=== PATIENT | male | born 1940 ===

== ENCOUNTER → 2017-07-10 | Outpatient (CLI) | payer OTHER ==
[~2017-07-10] MED LIST: AMIO200T7 PO; DOXA4TAB3 PO; LOSA25TA5 PO; METO-93 PO; SIMV20TA3 PO
[2017-07-10 11:52] LABS: ALANINE AMINOTRANSFERASE 38 U/L (12-78); ALBUMIN 3.5 g/dL (3.4-5.0); ANION GAP 6 mmol/L (5-15); CALCIUM 8.9 mg/dL (8.5-10.1); CHLORIDE 108 mmol/L (98-107)
[2017-07-10 11:54] LABS: ALKALINE PHOSPHATASE 53 U/L (45-117); BILIRUBIN,TOTAL 0.4 mg/dL (0.2-1.0); TOTAL PROTEIN 7.3 g/dL (6.4-8.2)
== END | disposition home or self-care (01) ==
LOC: STAR 10:14
PROVIDERS: ATTEND Surgery
DX: Z01.818 Encounter for other preprocedural examination (principal); R94.31 Abnormal electrocardiogram [ECG] [EKG]; K44.9 Diaphragmatic hernia without obstruction or gangrene
CPT/HCPCS: 36415; 80053; 93005

== ENCOUNTER 2017-07-14 08:05 | Inpatient (IN) | payer OTHER ==
[2017-07-10 11:02] VITALS: BP 151/92
[~2017-07-14] VITALS: Ht 175.3 cm; Wt 99.5 kg
[~2017-07-14 08:05] MED LIST changes: +BUPIVACAINE/PF 0.5% ONE; +EPINEPHRINE 1 MG/ML, 1ML ONE
[2017-07-14] MEDS ORDERED: LACTATED RINGERS 1,000 ML IV SCH (08:50)
[2017-07-14] MEDS ORDERED: LIDOCAINE-MPF 1%, 2ML INFIL ONE (09:00)
[2017-07-14] MEDS ORDERED: ASPIRIN PO (09:20)
[2017-07-14] MEDS ORDERED: OXYcodone IR 5MG TABLET PO ONE (10:00)
[2017-07-14] MEDS ORDERED: GABAPENTIN 300 MG CAPSULE PO ONE (10:00)
[2017-07-14] MEDS ORDERED: ACETAMINOPHEN 500 MG TABLET PO ONE (10:00)
[2017-07-14] MEDS ORDERED: FAMOTIDINE 20 MG/2 ML IVPush ONE (10:00)
[2017-07-14] MEDS ORDERED: GABAPENTIN 300 MG CAPSULE ONE (10:04)
[2017-07-14] MEDS ORDERED: FAMOTIDINE 20 MG/2 ML ONE (10:04)
[2017-07-14] MEDS ORDERED: MIDAZOLAM 1 MG/ML, 2ML ONE (10:05)
[2017-07-14] MEDS ORDERED: OXYcodone IR 5MG TABLET ONE (10:05)
[2017-07-14] MEDS ORDERED: FENTANYL PF 250 MCG/5ML ONE (10:05)
[2017-07-14] MEDS ORDERED: ACETAMINOPHEN 500 MG TABLET ONE (10:06)
[2017-07-14] MEDS ORDERED: LIDOCAINE-MPF 2% ,5ML ONE (10:24)
[2017-07-14] MEDS ORDERED: PHENYLEPHRINE 10 MG/ML ONE (10:24)
[2017-07-14] MEDS ORDERED: LIDOCAINE 4%, 4 ML SYR/CANN TP ONE (10:24)
[2017-07-14] MEDS ORDERED: FENTANYL PF 100 MCG/2ML IV PRN (11:00)
[2017-07-14] MEDS ORDERED: morphine SULFATE 10 MG/ML, 1ML IV PRN (11:00)
[2017-07-14] MEDS ORDERED: PROMETHAZINE 25 MG/ML, 1ML IV PRN (11:00)
[2017-07-14] MEDS ORDERED: METOCLOPRAMIDE 5 MG/ML, 2ML IV PRN (11:00)
[2017-07-14] MEDS ORDERED: ONDANSETRON 2MG/ML, 2ML IVPush PRN (11:00)
[2017-07-14] MEDS ORDERED: OXYcodone 5 MG/5 ML ORAL.SOL UDC PO PRN (11:00)
[2017-07-14] MEDS ORDERED: hydrALAzine 20 MG/ML, 1ML IV PRN (11:00)
[2017-07-14] MEDS ORDERED: LABETALOL 5MG/ML, 20ML IV PRN (11:00)
[2017-07-14] MEDS ORDERED: HYDROcodone/APAP 7.5-325MG/15ML UDC PO PRN (11:00)
[2017-07-14] MEDS ORDERED: BUPIVACAINE/PF-EPI 0.5% 1:200K IM ONE (11:14)
[2017-07-14] MEDS ORDERED: FENTANYL PF 100 MCG/2ML ONE (12:59)
[2017-07-14] MEDS ORDERED: PROPOFOL 10 MG/ML, 20ML ONE (13:05)
[2017-07-14] MEDS ORDERED: ROCURONIUM 10MG/ML,5ML ONE (13:05)
[2017-07-14] MEDS ORDERED: NEOSTIGMINE 1 MG/ML, 10ML ONE (13:05)
[2017-07-14] MEDS ORDERED: CEFAZOLIN 1,000 MG ONE (13:05)
[2017-07-14] MEDS ORDERED: GLYCOPYRROLATE 0.2MG/1ML, 5ML ONE (13:05)
[2017-07-14] MEDS ORDERED: DEXAMETHASONE 4 MG/ML, 1ML ONE (13:05)
[2017-07-14] MEDS ORDERED: SUCCINYLCHOLINE 20 MG/ML, 10ML ONE (13:05)
[2017-07-14] MEDS ORDERED: ONDANSETRON 2MG/ML, 2ML ONE (13:05)
[2017-07-14] MEDS ORDERED: MORPHINE SULFATE 4 MG/ML, 1ML ONE (14:41)
[2017-07-14] MEDS ORDERED: hydrALAzine 20 MG/ML, 1ML ONE (14:55)
[2017-07-14 16:12] VITALS: BP 133/81
[2017-07-14] MEDS ORDERED: MORPHINE SULFATE 4 MG/ML, 1ML IVPush PRN (16:30)
[2017-07-14] MEDS ORDERED: ONDANSETRON ODT 4 MG PO PRN (16:30)
[2017-07-14] MEDS ORDERED: ONDANSETRON 2MG/ML, 2ML IV PRN (16:30)
[2017-07-14] MEDS: METOPROLOL TARTRATE 50 MG TABLET PO SCH (17:48)
[2017-07-14 19:44] VITALS: BP 151/89
[2017-07-14] MEDS ORDERED: SIMVASTATIN 20 MG TABLET PO SCH (21:00)
[2017-07-14 23:30] VITALS: BP 134/84
[2017-07-15] MEDS: LACTATED RINGERS 1,000 ML IV SCH ×2 (00:58→07:00)
[2017-07-15 02:47] VITALS: BP 158/88
[2017-07-15 05:22] LABS: BASOPHILS % (AUTO) 0 % (0-1); EOSINOPHILS % (AUTO) 0 % (1-7); LYMPHOCYTES # (AUTO) 0.65 x10^3/uL (1-3.4); LYMPHOCYTES % (AUTO) 7 % (22-44); MD NO; MEAN CORPUSCULAR HEMOGLOBIN 31.3 pg (27.5-34.5); MEAN CORPUSCULAR HGB CONC 33.3 g/dL (33.2-36.2); MEAN CORPUSCULAR VOLUME 94.1 fL (81-97); MEAN PLATELET VOLUME 8.8 fL (7.4-10.4); MONOCYTES # (AUTO) 0.72 x10^3/uL (0.2-0.8); MONOCYTES % (AUTO) 8 % (2-9); NEUTROPHILS # (AUTO) 8.23 x10^3/uL (1.8-6.8); NEUTROPHILS % (AUTO) 86 % (42-75); PLATELET COUNT 160 x10^3/uL (130-400); RED BLOOD COUNT 4.76 x10^6/uL (4.38-5.82)
[2017-07-15 05:30] LABS: ANION GAP 8 mmol/L (5-15); CALCIUM 8.2 mg/dL (8.5-10.1); CHLORIDE 106 mmol/L (98-107); CREATININE 1.01 mg/dL (0.7-1.3)
[2017-07-15] MEDS: METOPROLOL TARTRATE 50 MG TABLET PO SCH (06:44)
[2017-07-15 07:14] VITALS: BP 115/75
[2017-07-15] MEDS ORDERED: AMIODARONE 200 MG TABLET PO SCH (09:00)
[2017-07-15] MEDS ORDERED: DOXAZOSIN 2MG TABLET PO SCH (09:00)
[2017-07-15] MEDS ORDERED: LOSARTAN 25MG TABLET PO SCH (09:00)
[2017-07-15 12:21] VITALS: BP 119/76
[2017-07-15] MEDS ORDERED: OXYC-302 PO (14:13)
== END 2017-07-15 14:45 | disposition home or self-care (01) | DRG 328 ==
LOC: OUT 08:05 → 4NOR 16:08 → OUT 17:00 → 4NOR 17:01 → DCLOUNGE 07-15 14:11
PROVIDERS: ADMIT Surgery; ATTEND Surgery
PROC: 0BQT4ZZ Repair Diaphragm, Percutaneous Endoscopic Approach (ICD-10-PCS; principal; 2017-07-14 10:15)
DX: K44.9 Diaphragmatic hernia without obstruction or gangrene (principal); K66.8 Other specified disorders of peritoneum; I10 Essential (primary) hypertension
CPT/HCPCS: 36415; 80048; 85025; J0171; J0690; J1100; J2250; J2270; J2405; J2704; J2710; J3010; J3490; J0330; J0360; J2370; J7120; S0028

== ENCOUNTER 2017-07-18 09:37 | Inpatient (IN) | payer OTHER ==
[~2017-07-18] VITALS: Ht 175.3 cm; Wt 97.5 kg
[~2017-07-18 09:37] MED LIST changes: +ASPIRIN PO; -BUPIVACAINE/PF 0.5% ONE; -EPINEPHRINE 1 MG/ML, 1ML ONE; +OXYC-302 PO
[2017-07-18] MEDS ORDERED: SODIUM CHLORIDE FLUSH 10ML SYR IVF ONE (10:30)
[2017-07-18 10:35] LABS: BASOPHILS # (AUTO) 0.02 x10^3/uL (0-0.1); BASOPHILS % (AUTO) 0 % (0-1); EOSINOPHILS # (AUTO) 0.14 x10^3/uL (0-0.4); EOSINOPHILS % (AUTO) 2 % (1-7); LYMPHOCYTES # (AUTO) 0.71 x10^3/uL (1-3.4); LYMPHOCYTES % (AUTO) 8 % (22-44); MD NO; MEAN CORPUSCULAR HEMOGLOBIN 31.2 pg (27.5-34.5); MEAN CORPUSCULAR VOLUME 94.5 fL (81-97); MEAN PLATELET VOLUME 8.2 fL (7.4-10.4); MONOCYTES # (AUTO) 0.87 x10^3/uL (0.2-0.8); MONOCYTES % (AUTO) 9 % (2-9); NEUTROPHILS # (AUTO) 7.73 x10^3/uL (1.8-6.8); NEUTROPHILS % (AUTO) 82 % (42-75); PLATELET COUNT 142 x10^3/uL (130-400); RED CELL DISTRIBUTION WIDTH 13.9 % (9.4-14.8)
[2017-07-18 10:45] LABS: ALANINE AMINOTRANSFERASE 244 U/L (12-78); ALBUMIN 2.9 g/dL (3.4-5.0); ANION GAP 7 mmol/L (5-15); CALCIUM 8.6 mg/dL (8.5-10.1); CHLORIDE 102 mmol/L (98-107)
[2017-07-18 10:49] LABS: ALKALINE PHOSPHATASE 44 U/L (45-117); BILIRUBIN,TOTAL 0.7 mg/dL (0.2-1.0); TOTAL PROTEIN 6.9 g/dL (6.4-8.2); TROPONIN I < 0.015 ng/mL (0.000-0.045)
[2017-07-18] MEDS ORDERED: OMNIPAQUE 350 MG/ML, 100ML BOTTLE ONE (13:20)
[2017-07-18] MEDS ORDERED: morphine SULFATE 10 MG/ML, 1ML IVPush ONE (13:30)
[2017-07-18] MEDS ORDERED: MORPHINE SULFATE 4 MG/ML, 1ML ONE (13:40)
[2017-07-18] MEDS ORDERED: PANT20TA3 PO (13:50)
[2017-07-18 14:14] LABS: MICROSCOPIC NOT IND
[2017-07-18 14:25] LABS: CULTURE INDICATED? NO
[2017-07-18] MEDS ORDERED: DOCUSATE 100 MG CAPSULE PO PRN (15:00)
[2017-07-18] MEDS ORDERED: POLYETHYLENE GLYCOL 17 GM PACKET PO PRN (15:00)
[2017-07-18] MEDS ORDERED: ONDANSETRON ODT 4 MG PO PRN (15:00)
[2017-07-18] MEDS ORDERED: BISACODYL 10 MG SUPP PR PRN (15:00)
[2017-07-18] MEDS ORDERED: ACETAMINOPHEN 325 MG TABLET PO PRN (15:00)
[2017-07-18] MEDS ORDERED: SODIUM CHLORIDE 0.9% 1,000 ML IV SCH (15:00)
[2017-07-18 15:21] LABS: INTERNATIONAL NORMALIZED RATIO 1.06 (0.93-1.1); PROTHROMBIN TIME 10.9 Seconds (9.6-11.5)
[2017-07-18] MEDS ORDERED: OMNIPAQUE 350 MG/ML, 150 ML BOTTLE ONE (15:41)
[2017-07-18 16:20] VITALS: BP 165/95
[2017-07-18] MEDS: NS + 20MEQ KCL 1,000 ML IV SCH (17:48)
[2017-07-18 18:31] VITALS: BP 176/96
[2017-07-18] MEDS: ENALAPRILAT 1.25 MG/ML, 2ML IVPush PRN (18:41)
[2017-07-18 19:54] VITALS: BP 165/99
[2017-07-18] MEDS: DOXAZOSIN 2MG TABLET PO SCH (20:49)
[2017-07-18] MEDS: METOPROLOL SUCCINATE 50 MG TAB.ER.24H PO SCH (20:49)
[2017-07-18] MEDS: SIMVASTATIN 20 MG TABLET PO SCH (20:49)
[2017-07-19] VITALS (7 sets, daily range): BP systolic 160–185; BP diastolic 91–99
[2017-07-19] MEDS: morphine SULFATE 10 MG/ML, 1ML IVPush PRN ×4 (02:15→23:12)
[2017-07-19] MEDS: SODIUM CHLORIDE NASAL SPRAY 45ML BOTTLE NAS PRN (03:10)
[2017-07-19 05:01] LABS: BASOPHILS # (AUTO) 0.02 x10^3/uL (0-0.1); BASOPHILS % (AUTO) 0 % (0-1); EOSINOPHILS # (AUTO) 0.13 x10^3/uL (0-0.4); EOSINOPHILS % (AUTO) 2 % (1-7); LYMPHOCYTES # (AUTO) 0.67 x10^3/uL (1-3.4); LYMPHOCYTES % (AUTO) 9 % (22-44); MD NO; MEAN CORPUSCULAR HEMOGLOBIN 31.4 pg (27.5-34.5); MEAN CORPUSCULAR HGB CONC 33.1 g/dL (33.2-36.2); MEAN CORPUSCULAR VOLUME 94.9 fL (81-97); MEAN PLATELET VOLUME 8.3 fL (7.4-10.4); MONOCYTES # (AUTO) 0.77 x10^3/uL (0.2-0.8); MONOCYTES % (AUTO) 10 % (2-9); NEUTROPHILS # (AUTO) 6.28 x10^3/uL (1.8-6.8); NEUTROPHILS % (AUTO) 80 % (42-75); PLATELET COUNT 161 x10^3/uL (130-400); RED CELL DISTRIBUTION WIDTH 14.1 % (9.4-14.8)
[2017-07-19 05:14] LABS: CHLORIDE 105 mmol/L (98-107)
[2017-07-19 05:29] LABS: ALANINE AMINOTRANSFERASE 173 U/L (12-78); ALBUMIN 2.5 g/dL (3.4-5.0); ALKALINE PHOSPHATASE 43 U/L (45-117); ANION GAP 7 mmol/L (5-15); BILIRUBIN,TOTAL 0.7 mg/dL (0.2-1.0); CREATININE 0.81 mg/dL (0.7-1.3)
[2017-07-19] MEDS: NS + 20MEQ KCL 1,000 ML IV SCH ×2 (07:44→22:25)
[2017-07-19] MEDS: DOXAZOSIN 2MG TABLET PO SCH ×2 (09:00→21:39)
[2017-07-19] MEDS: METOPROLOL SUCCINATE 50 MG TAB.ER.24H PO SCH ×2 (09:00→21:39)
[2017-07-19] MEDS: AMIODARONE 200 MG TABLET PO SCH (09:00)
[2017-07-19] MEDS: LOSARTAN 50MG TABLET PO SCH (09:00)
[2017-07-19] MEDS ORDERED: LIDOCAINE-MPF 1%, 5ML ONE (09:00)
[2017-07-19] MEDS: ENALAPRILAT 1.25 MG/ML, 2ML IVPush PRN (16:08)
[2017-07-19] MEDS: SIMVASTATIN 20 MG TABLET PO SCH (21:39)
[2017-07-19] MEDS ORDERED: MORPHINE SULFATE 4 MG/ML, 1ML ONE (23:09)
[2017-07-20 04:00] VITALS: BP 163/95
[2017-07-20 05:46] LABS: BASOPHILS # (AUTO) 0.01 x10^3/uL (0-0.1); BASOPHILS % (AUTO) 0 % (0-1); EOSINOPHILS % (AUTO) 1 % (1-7); LYMPHOCYTES % (AUTO) 10 % (22-44); MD NO; MEAN CORPUSCULAR HEMOGLOBIN 31.5 pg (27.5-34.5); MEAN CORPUSCULAR HGB CONC 33.6 g/dL (33.2-36.2); MEAN CORPUSCULAR VOLUME 93.8 fL (81-97); MEAN PLATELET VOLUME 7.7 fL (7.4-10.4); MONOCYTES # (AUTO) 0.86 x10^3/uL (0.2-0.8); MONOCYTES % (AUTO) 11 % (2-9); NEUTROPHILS # (AUTO) 5.99 x10^3/uL (1.8-6.8); NEUTROPHILS % (AUTO) 77 % (42-75); PLATELET COUNT 139 x10^3/uL (130-400); RED BLOOD COUNT 4.62 x10^6/uL (4.38-5.82)
[2017-07-20 05:52] LABS: ALBUMIN 2.7 g/dL (3.4-5.0); ANION GAP 8 mmol/L (5-15); CALCIUM 8.2 mg/dL (8.5-10.1); CHLORIDE 107 mmol/L (98-107)
[2017-07-20 05:56] LABS: ALANINE AMINOTRANSFERASE 132 U/L (12-78); ALKALINE PHOSPHATASE 48 U/L (45-117); CREATININE 0.68 mg/dL (0.7-1.3); TOTAL PROTEIN 6.4 g/dL (6.4-8.2)
[2017-07-20] MEDS ORDERED: BISACODYL 5 MG EC TABLET PO PRN (06:30)
[2017-07-20 08:12] VITALS: BP 159/95
[2017-07-20] MEDS: DOXAZOSIN 2MG TABLET PO SCH ×2 (09:27→20:31)
[2017-07-20] MEDS: AMIODARONE 200 MG TABLET PO SCH (09:27)
[2017-07-20] MEDS: NS + 20MEQ KCL 1,000 ML IV SCH ×2 (09:27→20:32)
[2017-07-20] MEDS: METOPROLOL SUCCINATE 50 MG TAB.ER.24H PO SCH ×2 (09:28→20:32)
[2017-07-20] MEDS: OXYcodone/APAP 5/325MG TABLET PO PRN ×2 (09:28→20:32)
[2017-07-20] MEDS: LOSARTAN 50MG TABLET PO SCH (09:28)
[2017-07-20 13:15] VITALS: BP_SYST 129; BP_DIAS 70; BP_DIAS 86
[2017-07-20 20:04] VITALS: BP 175/109
[2017-07-20] MEDS: SIMVASTATIN 20 MG TABLET PO SCH (20:32)
[2017-07-20] MEDS: SODIUM CHLORIDE NASAL SPRAY 45ML BOTTLE NAS PRN (20:33)
[2017-07-21 03:01] VITALS: BP 157/99
[2017-07-21 04:31] LABS: BASOPHILS # (AUTO) 0.02 x10^3/uL (0-0.1); BASOPHILS % (AUTO) 0 % (0-1); EOSINOPHILS # (AUTO) 0.16 x10^3/uL (0-0.4); EOSINOPHILS % (AUTO) 2 % (1-7); LYMPHOCYTES # (AUTO) 0.73 x10^3/uL (1-3.4); LYMPHOCYTES % (AUTO) 8 % (22-44); MD NO; MEAN CORPUSCULAR HEMOGLOBIN 31.3 pg (27.5-34.5); MEAN CORPUSCULAR HGB CONC 33.4 g/dL (33.2-36.2); MEAN CORPUSCULAR VOLUME 93.8 fL (81-97); MEAN PLATELET VOLUME 7.2 fL (7.4-10.4); MONOCYTES # (AUTO) 1.06 x10^3/uL (0.2-0.8); MONOCYTES % (AUTO) 12 % (2-9); NEUTROPHILS # (AUTO) 7.09 x10^3/uL (1.8-6.8); NEUTROPHILS % (AUTO) 78 % (42-75); PLATELET COUNT 143 x10^3/uL (130-400); RED BLOOD COUNT 4.43 x10^6/uL (4.38-5.82); RED CELL DISTRIBUTION WIDTH 13.9 % (9.4-14.8)
[2017-07-21 04:41] LABS: ALANINE AMINOTRANSFERASE 103 U/L (12-78); ALBUMIN 2.6 g/dL (3.4-5.0); ANION GAP 6 mmol/L (5-15); CALCIUM 8.3 mg/dL (8.5-10.1); CHLORIDE 105 mmol/L (98-107); CREATININE 0.81 mg/dL (0.7-1.3)
[2017-07-21 04:44] LABS: ALKALINE PHOSPHATASE 49 U/L (45-117); BILIRUBIN,TOTAL 1.3 mg/dL (0.2-1.0); TOTAL PROTEIN 6.3 g/dL (6.4-8.2)
[2017-07-21 06:55] VITALS: BP 145/86
[2017-07-21] MEDS: DOXAZOSIN 2MG TABLET PO SCH ×2 (09:36→21:58)
[2017-07-21] MEDS: METOPROLOL SUCCINATE 50 MG TAB.ER.24H PO SCH ×2 (09:36→21:57)
[2017-07-21] MEDS: LOSARTAN 50MG TABLET PO SCH (09:37)
[2017-07-21] MEDS: AMIODARONE 200 MG TABLET PO SCH (09:37)
[2017-07-21 13:24] VITALS: BP 117/79
[2017-07-21 20:23] VITALS: BP 158/95
[2017-07-21] MEDS: OXYcodone/APAP 5/325MG TABLET PO PRN (21:57)
[2017-07-21] MEDS: NS + 20MEQ KCL 1,000 ML IV SCH (21:57)
[2017-07-21] MEDS: SIMVASTATIN 20 MG TABLET PO SCH (21:58)
[2017-07-22 05:12] VITALS: BP 153/92
[2017-07-22 07:12] VITALS: BP 161/102
[2017-07-22] MEDS: AMIODARONE 200 MG TABLET PO SCH (08:08)
[2017-07-22] MEDS: LOSARTAN 50MG TABLET PO SCH (08:08)
[2017-07-22] MEDS: METOPROLOL SUCCINATE 50 MG TAB.ER.24H PO SCH (08:08)
[2017-07-22] MEDS: DOXAZOSIN 2MG TABLET PO SCH (08:08)
[2017-07-22] MEDS: NS + 20MEQ KCL 1,000 ML IV SCH (10:20)
[2017-07-22 15:21] VITALS: BP 154/97
== END 2017-07-22 16:45 | disposition home or self-care (01) | DRG 391 ==
LOC: ED 14:05 → EDIP 14:10 → ED 14:14 → 3NW 16:15
PROVIDERS: ADMIT Hospitalist; ATTEND Family Medicine
PROC: 0D9670Z Drainage of Stomach with Drainage Device, Via Natural or Artificial Opening (ICD-10-PCS; 2017-07-18)
PROC: 0W9B3ZZ Drainage of Left Pleural Cavity, Percutaneous Approach (ICD-10-PCS; principal; 2017-07-19)
DX: K44.9 Diaphragmatic hernia without obstruction or gangrene (principal); I50.31 Acute diastolic (congestive) heart failure; E44.0 Moderate protein-calorie malnutrition; J90 Pleural effusion, not elsewhere classified; J98.11 Atelectasis; I11.0 Hypertensive heart disease with heart failure; I77.810 Thoracic aortic ectasia; R73.9 Hyperglycemia, unspecified; R74.0 Nonspecific elevation of levels of transaminase and lactic acid dehydrogenase [LDH]; E78.5 Hyperlipidemia, unspecified; G47.33 Obstructive sleep apnea (adult) (pediatric); G89.18 Other acute postprocedural pain; I27.20 Pulmonary hypertension, unspecified; I25.10 Atherosclerotic heart disease of native coronary artery without angina pectoris; R09.02 Hypoxemia; K21.9 Gastro-esophageal reflux disease without esophagitis; I25.2 Old myocardial infarction; Z82.49 Family history of ischemic heart disease and other diseases of the circulatory system; Z87.891 Personal history of nicotine dependence; Z79.899 Other long term (current) drug therapy; Z79.82 Long term (current) use of aspirin; Z68.31 Body mass index [BMI] 31.0-31.9, adult
CPT/HCPCS: 36415; 71045; 71275; 74018; 74220; 80053; 81003; 83605; 83735; 83880; 84100; 84484; 85025; 85610; 87040; 93005; 93306; 99285; J3480; Q9967; J2270

== ENCOUNTER 2017-12-08 14:46 | Inpatient (IN) | payer OTHER ==
[~2017-12-08] VITALS: Ht 175.3 cm; Wt 73.0 kg
[~2017-12-08 14:46] MED LIST changes: -LOSA25TA5 PO; +LOSA25TA6 PO; +PANT20TA3 PO
[2017-12-08] MEDS ORDERED: PLEASE ENTER HEIGHT AND WEIGHT MC SCH (15:00)
[2017-12-08] MEDS ORDERED: SODIUM CHLORIDE FLUSH 10ML SYR IVF ONE (15:00)
[2017-12-08 15:34] LABS: ALBUMIN 2.1 g/dL (3.4-5.0); BASOPHILS # (AUTO) 0.03 x10^3/uL (0-0.1); BASOPHILS % (AUTO) 0 % (0-1); CHLORIDE 103 mmol/L (98-107); EOSINOPHILS # (AUTO) 0.02 x10^3/uL (0-0.4); EOSINOPHILS % (AUTO) 0 % (1-7); LYMPHOCYTES # (AUTO) 0.84 x10^3/uL (1-3.4); LYMPHOCYTES % (AUTO) 7 % (22-44); MD NO; MEAN CORPUSCULAR HEMOGLOBIN 31.5 pg (27.5-34.5); MEAN CORPUSCULAR HGB CONC 33.8 g/dL (33.2-36.2); MEAN CORPUSCULAR VOLUME 93.1 fL (81-97); MEAN PLATELET VOLUME 6.8 fL (7.4-10.4); MONOCYTES # (AUTO) 0.85 x10^3/uL (0.2-0.8); MONOCYTES % (AUTO) 7 % (2-9); NEUTROPHILS # (AUTO) 10.29 x10^3/uL (1.8-6.8); NEUTROPHILS % (AUTO) 86 % (42-75); PLATELET COUNT 279 x10^3/uL (130-400); RED BLOOD COUNT 3.18 x10^6/uL (4.38-5.82); RED CELL DISTRIBUTION WIDTH 14.8 % (9.4-14.8)
[2017-12-08 15:42] LABS: ANION GAP 5 mmol/L (5-15); CREATININE 0.62 mg/dL (0.7-1.3)
[2017-12-08 15:59] LABS: INTERNATIONAL NORMALIZED RATIO 1.12 (0.93-1.1); PROTHROMBIN TIME 11.5 Seconds (9.6-11.5)
[2017-12-08] MEDS ORDERED: OMNIPAQUE 350 MG/ML, 100ML BOTTLE ONE (16:14)
[2017-12-08] MEDS ORDERED: HEPARIN 5,000 UNITS/ML, 1ML IV ONE (17:00)
[2017-12-08] MEDS ORDERED: HEPARIN 5,000 UNITS/ML, 1ML ONE (17:24)
[2017-12-08] MEDS ORDERED: HEPARIN 25,000 UNITS/500ML PMX 500 ML ONE (17:24)
[2017-12-08] MEDS ORDERED: ACETAMINOPHEN 325 MG TABLET PO PRN (17:30)
[2017-12-08] MEDS ORDERED: hydrALAzine 20 MG/ML, 1ML IVPush PRN (17:30)
[2017-12-08] MEDS: HEPARIN 25,000 UNITS/500ML PMX 500 ML IV PRN (17:36)
[2017-12-08 18:00] VITALS: BP 156/96
[2017-12-08 20:39] VITALS: BP 156/108
[2017-12-08] MEDS: DOXAZOSIN 2MG TABLET PO SCH (21:05)
[2017-12-08] MEDS: SIMVASTATIN 20 MG TABLET PO SCH (21:17)
[2017-12-08 22:43] VITALS: BP 116/72
[2017-12-09] MEDS: HEPARIN 5,000 UNITS/ML, 1ML IV PRN ×2 (01:01→09:12)
[2017-12-09 02:33] VITALS: BP 127/79
[2017-12-09 07:29] VITALS: BP 131/75
[2017-12-09 08:40] LABS: BASOPHILS # (AUTO) 0.01 x10^3/uL (0-0.1); BASOPHILS % (AUTO) 0 % (0-1); EOSINOPHILS # (AUTO) 0.11 x10^3/uL (0-0.4); EOSINOPHILS % (AUTO) 1 % (1-7); LYMPHOCYTES # (AUTO) 0.74 x10^3/uL (1-3.4); LYMPHOCYTES % (AUTO) 9 % (22-44); MD NO; MEAN CORPUSCULAR HEMOGLOBIN 30.4 pg (27.5-34.5); MEAN CORPUSCULAR HGB CONC 32.7 g/dL (33.2-36.2); MEAN CORPUSCULAR VOLUME 93.1 fL (81-97); MEAN PLATELET VOLUME 6.5 fL (7.4-10.4); MONOCYTES # (AUTO) 0.57 x10^3/uL (0.2-0.8); MONOCYTES % (AUTO) 7 % (2-9); NEUTROPHILS # (AUTO) 6.84 x10^3/uL (1.8-6.8); NEUTROPHILS % (AUTO) 83 % (42-75); PLATELET COUNT 246 x10^3/uL (130-400); RED BLOOD COUNT 2.95 x10^6/uL (4.38-5.82); RED CELL DISTRIBUTION WIDTH 15.4 % (9.4-14.8)
[2017-12-09 08:51] LABS: ALANINE AMINOTRANSFERASE 16 U/L (12-78); ALBUMIN 1.8 g/dL (3.4-5.0); ANION GAP 5 mmol/L (5-15); CALCIUM 7.7 mg/dL (8.5-10.1); CHLORIDE 104 mmol/L (98-107); CHOLESTEROL, TOTAL 100 mg/dL (140-239); CREATININE 0.54 mg/dL (0.7-1.3)
[2017-12-09 08:59] LABS: ALKALINE PHOSPHATASE 53 U/L (45-117); BILIRUBIN,TOTAL 0.5 mg/dL (0.2-1.0); CHOL/HDL RATIO 2.4; HDL CHOL % 42 % (26-37); HDL CHOLESTEROL (DIRECT) 42 mg/dL (40-60); LDL CHOLESTEROL,CALCULATED 47 mg/dL (54-169); LDL/HDL RATIO 1.1 (0.5-3.0); TOTAL PROTEIN 5.3 g/dL (6.4-8.2); TRIGLYCERIDES 54 mg/dL (50-200); VLDL CHOLESTEROL 11 mg/dL (0-25)
[2017-12-09] MEDS: AMIODARONE 200 MG TABLET PO SCH (09:32)
[2017-12-09] MEDS: DOXAZOSIN 2MG TABLET PO SCH ×2 (09:34→20:51)
[2017-12-09] MEDS: PANTOPRAZOLE 20MG TABLET PO SCH (09:34)
[2017-12-09 13:17] VITALS: BP 122/77
[2017-12-09] MEDS ORDERED: ONDANSETRON ODT 4 MG PO PRN (16:00)
[2017-12-09] MEDS ORDERED: LIDOCAINE-MPF 2%, 2ML ONE (16:27)
[2017-12-09] MEDS ORDERED: HEPARIN 5,000 UNITS/ML, 1ML IVPush ONE (20:30)
[2017-12-09] MEDS: SIMVASTATIN 20 MG TABLET PO SCH (20:51)
[2017-12-09 20:55] VITALS: BP 132/84
[2017-12-10 02:22] VITALS: BP 135/105
[2017-12-10] MEDS: HEPARIN 25,000 UNITS/500ML PMX 500 ML IV PRN (02:25)
[2017-12-10 04:17] LABS: BASOPHILS # (AUTO) 0.03 x10^3/uL (0-0.1); BASOPHILS % (AUTO) 0 % (0-1); EOSINOPHILS # (AUTO) 0.08 x10^3/uL (0-0.4); EOSINOPHILS % (AUTO) 1 % (1-7); LYMPHOCYTES # (AUTO) 0.81 x10^3/uL (1-3.4); LYMPHOCYTES % (AUTO) 10 % (22-44); MD NO; MEAN CORPUSCULAR HEMOGLOBIN 31.1 pg (27.5-34.5); MEAN CORPUSCULAR HGB CONC 33.5 g/dL (33.2-36.2); MEAN CORPUSCULAR VOLUME 92.8 fL (81-97); MEAN PLATELET VOLUME 6.7 fL (7.4-10.4); MONOCYTES # (AUTO) 0.59 x10^3/uL (0.2-0.8); MONOCYTES % (AUTO) 7 % (2-9); NEUTROPHILS # (AUTO) 6.77 x10^3/uL (1.8-6.8); NEUTROPHILS % (AUTO) 82 % (42-75); PLATELET COUNT 240 x10^3/uL (130-400); RED BLOOD COUNT 2.86 x10^6/uL (4.38-5.82); RED CELL DISTRIBUTION WIDTH 15.1 % (9.4-14.8)
[2017-12-10 04:28] LABS: ALANINE AMINOTRANSFERASE 15 U/L (12-78); ALBUMIN 1.7 g/dL (3.4-5.0); ANION GAP 5 mmol/L (5-15); CALCIUM 7.4 mg/dL (8.5-10.1); CHLORIDE 104 mmol/L (98-107); CREATININE 0.56 mg/dL (0.7-1.3)
[2017-12-10 04:30] LABS: ALKALINE PHOSPHATASE 52 U/L (45-117); BILIRUBIN,TOTAL 0.5 mg/dL (0.2-1.0)
[2017-12-10] MEDS: HEPARIN 5,000 UNITS/ML, 1ML IV PRN ×2 (04:40→13:21)
[2017-12-10 07:35] VITALS: BP 144/86
[2017-12-10] MEDS: AMIODARONE 200 MG TABLET PO SCH (10:13)
[2017-12-10] MEDS: PANTOPRAZOLE 20MG TABLET PO SCH (10:39)
[2017-12-10] MEDS: DOXAZOSIN 2MG TABLET PO SCH ×2 (10:39→20:36)
[2017-12-10 14:40] VITALS: BP 134/83
[2017-12-10 18:55] VITALS: BP 116/72
[2017-12-10] MEDS: SIMVASTATIN 20 MG TABLET PO SCH (20:36)
[2017-12-11 00:58] VITALS: BP 142/81
[2017-12-11] MEDS: HEPARIN 25,000 UNITS/500ML PMX 500 ML IV PRN ×2 (01:19→18:59)
[2017-12-11 01:42] LABS: BASOPHILS # (AUTO) 0.02 x10^3/uL (0-0.1); BASOPHILS % (AUTO) 0 % (0-1); EOSINOPHILS % (AUTO) 1 % (1-7); LYMPHOCYTES # (AUTO) 0.85 x10^3/uL (1-3.4); LYMPHOCYTES % (AUTO) 12 % (22-44); MD NO; MEAN CORPUSCULAR HEMOGLOBIN 30.9 pg (27.5-34.5); MEAN CORPUSCULAR HGB CONC 33.2 g/dL (33.2-36.2); MEAN CORPUSCULAR VOLUME 93.1 fL (81-97); MEAN PLATELET VOLUME 6.9 fL (7.4-10.4); MONOCYTES # (AUTO) 0.56 x10^3/uL (0.2-0.8); MONOCYTES % (AUTO) 8 % (2-9); NEUTROPHILS # (AUTO) 5.49 x10^3/uL (1.8-6.8); NEUTROPHILS % (AUTO) 78 % (42-75); PLATELET COUNT 229 x10^3/uL (130-400); RED CELL DISTRIBUTION WIDTH 15.1 % (9.4-14.8)
[2017-12-11 01:53] LABS: ANION GAP 8 mmol/L (5-15); CALCIUM 7.2 mg/dL (8.5-10.1); CHLORIDE 104 mmol/L (98-107)
[2017-12-11 01:54] LABS: CREATININE 0.55 mg/dL (0.7-1.3)
[2017-12-11] MEDS: HEPARIN 5,000 UNITS/ML, 1ML IV PRN (06:14)
[2017-12-11 07:05] VITALS: BP 145/97
[2017-12-11] MEDS: AMIODARONE 200 MG TABLET PO SCH (09:13)
[2017-12-11] MEDS: DOXAZOSIN 2MG TABLET PO SCH ×2 (09:13→20:16)
[2017-12-11] MEDS: PANTOPRAZOLE 20MG TABLET PO SCH (09:13)
[2017-12-11 14:41] VITALS: BP 111/67
[2017-12-11 19:13] VITALS: BP 110/74
[2017-12-11] MEDS: SIMVASTATIN 20 MG TABLET PO SCH (20:15)
[2017-12-12 02:29] VITALS: BP 137/80
[2017-12-12 05:23] LABS: BASOPHILS # (AUTO) 0.04 x10^3/uL (0-0.1); BASOPHILS % (AUTO) 1 % (0-1); EOSINOPHILS # (AUTO) 0.14 x10^3/uL (0-0.4); EOSINOPHILS % (AUTO) 2 % (1-7); LYMPHOCYTES # (AUTO) 0.79 x10^3/uL (1-3.4); LYMPHOCYTES % (AUTO) 12 % (22-44); MD NO; MEAN CORPUSCULAR HEMOGLOBIN 30.9 pg (27.5-34.5); MEAN CORPUSCULAR HGB CONC 33.4 g/dL (33.2-36.2); MEAN CORPUSCULAR VOLUME 92.4 fL (81-97); MEAN PLATELET VOLUME 6.8 fL (7.4-10.4); MONOCYTES # (AUTO) 0.48 x10^3/uL (0.2-0.8); MONOCYTES % (AUTO) 7 % (2-9); NEUTROPHILS # (AUTO) 5.19 x10^3/uL (1.8-6.8); NEUTROPHILS % (AUTO) 78 % (42-75); PLATELET COUNT 224 x10^3/uL (130-400); RED BLOOD COUNT 2.78 x10^6/uL (4.38-5.82)
[2017-12-12 05:30] LABS: ANION GAP 5 mmol/L (5-15); CALCIUM 7.4 mg/dL (8.5-10.1); CHLORIDE 104 mmol/L (98-107); CREATININE 0.61 mg/dL (0.7-1.3)
[2017-12-12 08:32] VITALS: BP 119/68
[2017-12-12] MEDS: DOXAZOSIN 2MG TABLET PO SCH ×2 (08:43→20:00)
[2017-12-12] MEDS: AMIODARONE 200 MG TABLET PO SCH (08:43)
[2017-12-12] MEDS: PANTOPRAZOLE 20MG TABLET PO SCH (08:43)
[2017-12-12] MEDS ORDERED: POTASSIUM CHLORIDE 20 MEQ TAB.ER.PRT PO ONE (09:57)
[2017-12-12] MEDS ORDERED: FUROSEMIDE 40 MG/4 ML IV ONE (10:00)
[2017-12-12] MEDS: APIXABAN 5 MG TABLET PO SCH ×2 (11:53→20:00)
[2017-12-12 13:35] VITALS: BP 108/71
[2017-12-12] MEDS: POTASSIUM CHLORIDE 20 MEQ TAB.ER.PRT PO SCH (16:42)
[2017-12-12] MEDS: FUROSEMIDE 20 MG/2 ML IV SCH (16:42)
[2017-12-12 19:50] VITALS: BP 115/70
[2017-12-12] MEDS: SIMVASTATIN 20 MG TABLET PO SCH (20:00)
[2017-12-13 02:30] VITALS: BP 130/80
[2017-12-13 06:23] LABS: BASOPHILS # (AUTO) 0.03 x10^3/uL (0-0.1); BASOPHILS % (AUTO) 1 % (0-1); EOSINOPHILS % (AUTO) 2 % (1-7); LYMPHOCYTES # (AUTO) 0.88 x10^3/uL (1-3.4); LYMPHOCYTES % (AUTO) 14 % (22-44); MD NO; MEAN CORPUSCULAR HEMOGLOBIN 30.9 pg (27.5-34.5); MEAN CORPUSCULAR HGB CONC 33.5 g/dL (33.2-36.2); MEAN CORPUSCULAR VOLUME 92.2 fL (81-97); MEAN PLATELET VOLUME 6.9 fL (7.4-10.4); MONOCYTES # (AUTO) 0.56 x10^3/uL (0.2-0.8); MONOCYTES % (AUTO) 9 % (2-9); NEUTROPHILS # (AUTO) 4.94 x10^3/uL (1.8-6.8); NEUTROPHILS % (AUTO) 76 % (42-75); PLATELET COUNT 222 x10^3/uL (130-400); RED CELL DISTRIBUTION WIDTH 15.6 % (9.4-14.8)
[2017-12-13 06:30] LABS: ANION GAP 4 mmol/L (5-15); CALCIUM 7.5 mg/dL (8.5-10.1); CHLORIDE 103 mmol/L (98-107)
[2017-12-13 06:32] LABS: CREATININE 0.67 mg/dL (0.7-1.3)
[2017-12-13 07:02] VITALS: BP 156/92
[2017-12-13] MEDS: APIXABAN 5 MG TABLET PO SCH ×2 (08:29→20:00)
[2017-12-13] MEDS: DOXAZOSIN 2MG TABLET PO SCH ×2 (08:29→20:01)
[2017-12-13] MEDS: POTASSIUM CHLORIDE 20 MEQ TAB.ER.PRT PO SCH ×2 (08:29→16:33)
[2017-12-13] MEDS: FUROSEMIDE 20 MG/2 ML IV SCH ×2 (08:30→16:33)
[2017-12-13] MEDS: PANTOPRAZOLE 20MG TABLET PO SCH (08:30)
[2017-12-13] MEDS: AMIODARONE 200 MG TABLET PO SCH (08:30)
[2017-12-13 14:20] VITALS: BP 151/81
[2017-12-13 19:30] VITALS: BP 106/69
[2017-12-13] MEDS: SIMVASTATIN 20 MG TABLET PO SCH (20:01)
[2017-12-14 01:26] VITALS: BP 146/88
[2017-12-14 06:19] LABS: BASOPHILS # (AUTO) 0.02 x10^3/uL (0-0.1); BASOPHILS % (AUTO) 0 % (0-1); EOSINOPHILS # (AUTO) 0.07 x10^3/uL (0-0.4); EOSINOPHILS % (AUTO) 1 % (1-7); LYMPHOCYTES # (AUTO) 0.73 x10^3/uL (1-3.4); LYMPHOCYTES % (AUTO) 11 % (22-44); MD NO; MEAN CORPUSCULAR HEMOGLOBIN 30.7 pg (27.5-34.5); MEAN CORPUSCULAR HGB CONC 33.1 g/dL (33.2-36.2); MEAN CORPUSCULAR VOLUME 92.7 fL (81-97); MEAN PLATELET VOLUME 6.8 fL (7.4-10.4); MONOCYTES % (AUTO) 8 % (2-9); NEUTROPHILS # (AUTO) 5.19 x10^3/uL (1.8-6.8); NEUTROPHILS % (AUTO) 80 % (42-75); PLATELET COUNT 219 x10^3/uL (130-400); RED BLOOD COUNT 2.99 x10^6/uL (4.38-5.82); RED CELL DISTRIBUTION WIDTH 15.5 % (9.4-14.8)
[2017-12-14 06:28] LABS: ANION GAP 3 mmol/L (5-15); CALCIUM 7.6 mg/dL (8.5-10.1); CHLORIDE 102 mmol/L (98-107); CREATININE 0.66 mg/dL (0.7-1.3)
[2017-12-14 06:47] VITALS: BP 159/90
[2017-12-14] MEDS: PANTOPRAZOLE 20MG TABLET PO SCH (08:16)
[2017-12-14] MEDS: APIXABAN 5 MG TABLET PO SCH ×2 (08:17→20:31)
[2017-12-14] MEDS: DOXAZOSIN 2MG TABLET PO SCH ×2 (08:17→20:31)
[2017-12-14] MEDS: POTASSIUM CHLORIDE 20 MEQ TAB.ER.PRT PO SCH ×2 (08:17→16:18)
[2017-12-14] MEDS: AMIODARONE 200 MG TABLET PO SCH (08:17)
[2017-12-14] MEDS: FUROSEMIDE 20 MG/2 ML IV SCH ×2 (08:18→16:18)
[2017-12-14 12:35] VITALS: BP 124/80
[2017-12-14] MEDS: SIMVASTATIN 20 MG TABLET PO SCH (20:31)
[2017-12-14 20:53] VITALS: BP 133/82
[2017-12-15 01:25] VITALS: BP 142/83
[2017-12-15 06:38] VITALS: BP 137/84
[2017-12-15 07:44] LABS: ANION GAP 5 mmol/L (5-15); CALCIUM 7.7 mg/dL (8.5-10.1); CHLORIDE 100 mmol/L (98-107)
[2017-12-15] MEDS: FUROSEMIDE 20 MG/2 ML IV SCH ×2 (08:07→18:14)
[2017-12-15] MEDS: AMIODARONE 200 MG TABLET PO SCH (08:07)
[2017-12-15] MEDS: PANTOPRAZOLE 20MG TABLET PO SCH (08:07)
[2017-12-15] MEDS: APIXABAN 5 MG TABLET PO SCH ×2 (08:08→20:43)
[2017-12-15] MEDS: DOXAZOSIN 2MG TABLET PO SCH ×2 (08:08→20:43)
[2017-12-15] MEDS: POTASSIUM CHLORIDE 20 MEQ TAB.ER.PRT PO SCH ×2 (08:08→18:14)
[2017-12-15 13:50] VITALS: BP 112/67
[2017-12-15 18:45] VITALS: BP 104/65
[2017-12-15] MEDS: SIMVASTATIN 20 MG TABLET PO SCH (20:42)
[2017-12-16 02:38] VITALS: BP 135/84
[2017-12-16 05:54] LABS: CHLORIDE 101 mmol/L (98-107)
[2017-12-16 06:02] LABS: ANION GAP 4 mmol/L (5-15); CALCIUM 7.8 mg/dL (8.5-10.1)
[2017-12-16 07:36] VITALS: BP 145/64
[2017-12-16] MEDS: FUROSEMIDE 20 MG/2 ML IV SCH ×2 (07:38→16:30)
[2017-12-16] MEDS: DOXAZOSIN 2MG TABLET PO SCH ×2 (08:12→21:09)
[2017-12-16] MEDS: POTASSIUM CHLORIDE 20 MEQ TAB.ER.PRT PO SCH ×2 (08:12→16:31)
[2017-12-16] MEDS: AMIODARONE 200 MG TABLET PO SCH (08:12)
[2017-12-16] MEDS: APIXABAN 5 MG TABLET PO SCH ×2 (08:13→21:10)
[2017-12-16] MEDS: PANTOPRAZOLE 20MG TABLET PO SCH (08:13)
[2017-12-16 09:39] LABS: TOTAL PROTEIN 5.1 g/dL (6.4-8.2)
[2017-12-16 13:45] VITALS: BP 112/73
[2017-12-16] MEDS ORDERED: LIDOCAINE-MPF 2%, 2ML ONE (13:57)
[2017-12-16] MEDS ORDERED: OMNIPAQUE 350 MG/ML, 75ML BOTTLE ONE (19:17)
[2017-12-16 19:20] VITALS: BP 117/68
[2017-12-16] MEDS: SIMVASTATIN 20 MG TABLET PO SCH (21:10)
[2017-12-17 02:00] VITALS: BP 125/64
[2017-12-17 06:02] LABS: BASOPHILS # (AUTO) 0.04 x10^3/uL (0-0.1); BASOPHILS % (AUTO) 1 % (0-1); EOSINOPHILS # (AUTO) 0.08 x10^3/uL (0-0.4); EOSINOPHILS % (AUTO) 1 % (1-7); LYMPHOCYTES # (AUTO) 0.88 x10^3/uL (1-3.4); LYMPHOCYTES % (AUTO) 12 % (22-44); MD NO; MEAN CORPUSCULAR HEMOGLOBIN 31.2 pg (27.5-34.5); MEAN CORPUSCULAR HGB CONC 33.6 g/dL (33.2-36.2); MEAN CORPUSCULAR VOLUME 93.1 fL (81-97); MEAN PLATELET VOLUME 7.5 fL (7.4-10.4); MONOCYTES # (AUTO) 0.63 x10^3/uL (0.2-0.8); MONOCYTES % (AUTO) 8 % (2-9); NEUTROPHILS # (AUTO) 5.85 x10^3/uL (1.8-6.8); NEUTROPHILS % (AUTO) 78 % (42-75); PLATELET COUNT 222 x10^3/uL (130-400); RED BLOOD COUNT 3.37 x10^6/uL (4.38-5.82); RED CELL DISTRIBUTION WIDTH 14.4 % (9.4-14.8)
[2017-12-17 06:13] LABS: ANION GAP 4 mmol/L (5-15); CHLORIDE 99 mmol/L (98-107); CREATININE 0.77 mg/dL (0.7-1.3)
[2017-12-17 08:04] VITALS: BP 139/86
[2017-12-17] MEDS: DOXAZOSIN 2MG TABLET PO SCH ×2 (08:06→20:47)
[2017-12-17] MEDS: PANTOPRAZOLE 20MG TABLET PO SCH (08:06)
[2017-12-17] MEDS: FUROSEMIDE 20 MG/2 ML IV SCH ×2 (08:07→16:45)
[2017-12-17] MEDS: APIXABAN 5 MG TABLET PO SCH (08:07)
[2017-12-17] MEDS: POTASSIUM CHLORIDE 20 MEQ TAB.ER.PRT PO SCH ×2 (08:07→16:45)
[2017-12-17] MEDS: AMIODARONE 200 MG TABLET PO SCH (08:07)
[2017-12-17] MEDS ORDERED: APIX5TAB PO (09:24)
[2017-12-17] MEDS ORDERED: HEPARIN 5,000 UNITS/ML, 1ML IV ONE (10:00)
[2017-12-17] MEDS ORDERED: HEPARIN 5,000 UNITS/ML, 1ML IV PRN (10:00)
[2017-12-17] MEDS ORDERED: HEPARIN 25,000 UNITS/500ML PMX 500 ML IV PRN (10:00)
[2017-12-17] MEDS ORDERED: BISACODYL 10 MG SUPP PR PRN (11:00)
[2017-12-17] MEDS ORDERED: LACTULOSE 20 GM/30 ML UDC PO PRN (11:00)
[2017-12-17 13:36] VITALS: BP 114/71
[2017-12-17] MEDS ORDERED: SENNA/DOCUSATE TABLET ONE (20:41)
[2017-12-17] MEDS ORDERED: SIMVASTATIN 20 MG TABLET ONE (20:41)
[2017-12-17] MEDS: SIMVASTATIN 20 MG TABLET PO SCH (20:47)
[2017-12-17] MEDS: SENNA/DOCUSATE TABLET PO SCH ×2 (20:47→20:50)
[2017-12-17 21:57] VITALS: BP 98/64
[2017-12-17 22:00] VITALS: BP 99/65
[2017-12-17 22:01] VITALS: BP 97/68
[2017-12-18] VITALS (11 sets, daily range): BP systolic 86–126; BP diastolic 54–85
[2017-12-18] MEDS: FUROSEMIDE 20 MG/2 ML IV SCH (07:30)
[2017-12-18] MEDS: DOXAZOSIN 2MG TABLET PO SCH (07:43)
[2017-12-18] MEDS: AMIODARONE 200 MG TABLET PO SCH ×2 (07:43→08:03)
[2017-12-18] MEDS ORDERED: POTASSIUM CHLORIDE 20 MEQ TAB.ER.PRT ONE (08:00)
[2017-12-18] MEDS ORDERED: PANTOPRAZOLE 20MG TABLET ONE (08:00)
[2017-12-18] MEDS ORDERED: AMIODARONE 200 MG TABLET ONE (08:00)
[2017-12-18] MEDS: PANTOPRAZOLE 20MG TABLET PO SCH (08:04)
[2017-12-18] MEDS: POTASSIUM CHLORIDE 20 MEQ TAB.ER.PRT PO SCH (08:04)
[2017-12-18] MEDS ORDERED: DOCUSATE 100 MG CAPSULE PO SCH (09:00)
[2017-12-18] MEDS ORDERED: APIX5TAB PO ×2 (09:21)
[2017-12-18] MEDS ORDERED: APIXABAN 5 MG TABLET PO SCH (09:30)
[2017-12-25] MEDS ORDERED: APIXABAN 5 MG TABLET PO SCH (09:00)
== END 2017-12-18 17:05 | DRG 175 ==
LOC: ED 16:57 → 4EST 16:58 → ED 17:00 → UNDODISIN 12-17 17:33
PROVIDERS: ADMIT Hospitalist; ATTEND Hospitalist
PROC: 0W9B3ZZ Drainage of Left Pleural Cavity, Percutaneous Approach (ICD-10-PCS; principal; 2017-12-09)
PROC: 0W9B3ZZ Drainage of Left Pleural Cavity, Percutaneous Approach (ICD-10-PCS; 2017-12-13)
PROC: 0W9B3ZZ Drainage of Left Pleural Cavity, Percutaneous Approach (ICD-10-PCS; 2017-12-16)
DX: I26.99 Other pulmonary embolism without acute cor pulmonale (principal); J96.01 Acute respiratory failure with hypoxia; E43 Unspecified severe protein-calorie malnutrition; I50.32 Chronic diastolic (congestive) heart failure; I82.622 Acute embolism and thrombosis of deep veins of left upper extremity; J98.11 Atelectasis; Z68.23 Body mass index [BMI] 23.0-23.9, adult; D64.9 Anemia, unspecified; D72.829 Elevated white blood cell count, unspecified; E78.5 Hyperlipidemia, unspecified; E87.6 Hypokalemia; G47.33 Obstructive sleep apnea (adult) (pediatric); I11.0 Hypertensive heart disease with heart failure; I25.10 Atherosclerotic heart disease of native coronary artery without angina pectoris; I25.2 Old myocardial infarction; I27.29 Other secondary pulmonary hypertension; K80.20 Calculus of gallbladder without cholecystitis without obstruction; N40.0 Benign prostatic hyperplasia without lower urinary tract symptoms; R13.10 Dysphagia, unspecified; Z79.01 Long term (current) use of anticoagulants; Z82.49 Family history of ischemic heart disease and other diseases of the circulatory system; Z87.891 Personal history of nicotine dependence; Z90.3 Acquired absence of stomach [part of]
CPT/HCPCS: 32555; 36415; 71045; 71046; 71260; 71275; 80048; 80053; 80061; 82040; 83615; 83735; 83880; 84100; 84155; 84157; 84439; 84443; 85025; 85520; 85610; 85730; 87070; 87205; 88112; 88305; 89051; 93005; 93306; 96374; G0378; J1644; J1940; J3490; Q0162; Q9967; J0360

== ENCOUNTER 2018-01-11 10:17 | Inpatient (IN) | payer OTHER ==
[~2018-01-11] VITALS: Ht 175.3 cm; Wt 74.5 kg
[~2018-01-11 10:17] MED LIST changes: +APIX5TAB PO
[2018-01-11] MEDS ORDERED: SODIUM CHLORIDE 0.9% 1,000 ML IV ONE (10:44)
[2018-01-11] MEDS ORDERED: SODIUM CHLORIDE 0.9% 1,000ML IVBOLUS ONE (11:00)
[2018-01-11] MEDS ORDERED: SODIUM CHLORIDE FLUSH 10ML SYR IVF ONE (11:00)
[2018-01-11 11:33] LABS: BASOPHILS % (AUTO) 0 % (0-1); EOSINOPHILS % (AUTO) 0 % (1-7); LYMPHOCYTES # (AUTO) 0.27 x10^3/uL (1-3.4); LYMPHOCYTES % (AUTO) 2 % (22-44); MD NO; MEAN CORPUSCULAR HEMOGLOBIN 30.5 pg (27.5-34.5); MEAN CORPUSCULAR HGB CONC 33.1 g/dL (33.2-36.2); MEAN CORPUSCULAR VOLUME 92.2 fL (81-97); MEAN PLATELET VOLUME 7.2 fL (7.4-10.4); MONOCYTES # (AUTO) 0.99 x10^3/uL (0.2-0.8); MONOCYTES % (AUTO) 6 % (2-9); NEUTROPHILS # (AUTO) 16.59 x10^3/uL (1.8-6.8); NEUTROPHILS % (AUTO) 93 % (42-75); PLATELET COUNT 273 x10^3/uL (130-400); RED BLOOD COUNT 4.24 x10^6/uL (4.38-5.82)
[2018-01-11 11:43] LABS: INTERNATIONAL NORMALIZED RATIO 1.41 (0.93-1.1); PROTHROMBIN TIME 14.4 Seconds (9.6-11.5)
[2018-01-11] MEDS ORDERED: ONDANSETRON ODT 4 MG PO ONE (12:00)
[2018-01-11 12:09] LABS: ALBUMIN 2.2 g/dL (3.4-5.0); ANION GAP 10 mmol/L (5-15); CALCIUM 8.4 mg/dL (8.5-10.1); CHLORIDE 100 mmol/L (98-107)
[2018-01-11 12:14] LABS: CREATININE 1.19 mg/dL (0.7-1.3)
[2018-01-11 12:15] LABS: ALANINE AMINOTRANSFERASE 49 U/L (12-78); ALKALINE PHOSPHATASE 84 U/L (45-117); TOTAL PROTEIN 6.8 g/dL (6.4-8.2)
[2018-01-11] MEDS ORDERED: ONDANSETRON ODT 4 MG ONE (12:49)
[2018-01-11] MEDS ORDERED: OMNIPAQUE 350 MG/ML, 100ML BOTTLE ONE (12:57)
[2018-01-11] MEDS ORDERED: VANCOMYCIN 1,400 MG in SODIUM CHLORIDE 0.9% 250 ML IV ONE (13:30)
[2018-01-11] MEDS ORDERED: PIPERACILLIN/TAZO/PMX 3.375GM 50 ML IV ONE (13:30)
[2018-01-11] MEDS ORDERED: VANCOMYCIN PER PHARMACY MC ONE (13:30)
[2018-01-11] MEDS ORDERED: METRONIDAZOLE PMX 500MG/100ML 100 ML IV ONE ×2 (13:30→16:30)
[2018-01-11 13:35] LABS: MICROSCOPIC NOT IND
[2018-01-11 13:38] LABS: CULTURE INDICATED? NO
[2018-01-11] MEDS ORDERED: APIX5TAB PO (13:43)
[2018-01-11] MEDS ORDERED: ATOR40TA78 PO (13:43)
[2018-01-11] MEDS ORDERED: ONDA4TAB7 PO (13:43)
[2018-01-11] MEDS ORDERED: OMEP20TA62 PO (13:43)
[2018-01-11] MEDS ORDERED: PIPERACILLIN/TAZO/PMX 3.375GM 50 ML ONE (13:47)
[2018-01-11] MEDS ORDERED: METRONIDAZOLE PMX 500MG/100ML 100 ML ONE (13:47)
[2018-01-11 14:22] VITALS: BP 114/78
[2018-01-11 14:38] VITALS: BP 114/78
[2018-01-11] MEDS ORDERED: FLUMAZENIL 0.1 MG/1 ML, 5ML ONE (15:12)
[2018-01-11] MEDS ORDERED: FENTANYL PF 100 MCG/2ML ONE ×2 (15:12)
[2018-01-11] MEDS ORDERED: NALOXONE 1 MG/ML, 2ML ONE (15:12)
[2018-01-11] MEDS ORDERED: MIDAZOLAM 1 MG/ML, 5ML ONE ×2 (15:12)
[2018-01-11] MEDS ORDERED: LIDOCAINE-MPF 2%, 2ML ONE (15:18)
[2018-01-11] MEDS ORDERED: HYDROcodone/APAP 5/325 TABLET PO PRN (15:30)
[2018-01-11] MEDS ORDERED: BISACODYL 10 MG SUPP PR PRN (15:30)
[2018-01-11] MEDS ORDERED: DOCUSATE 100 MG CAPSULE PO PRN (15:30)
[2018-01-11] MEDS ORDERED: LABETALOL 5MG/ML, 20ML IVPush PRN (15:30)
[2018-01-11] MEDS ORDERED: ONDANSETRON 2MG/ML, 2ML IVPush PRN (15:30)
[2018-01-11] MEDS ORDERED: VANCOMYCIN PER PHARMACY MC PRN (15:30)
[2018-01-11] MEDS ORDERED: POLYETHYLENE GLYCOL 17 GM PACKET PO PRN (15:30)
[2018-01-11] MEDS ORDERED: ENALAPRILAT 1.25 MG/ML, 2ML IVPush PRN (15:30)
[2018-01-11] MEDS ORDERED: PHARMACOKINETIC MONITORING MC PRN (16:00)
[2018-01-11] MEDS: VANCOMYCIN 1,400 MG in SODIUM CHLORIDE 0.9% 250 ML IV SCH (16:19)
[2018-01-11] MEDS: ENOXAPARIN 40 MG/0.4 ML SQ SCH (16:19)
[2018-01-11] MEDS: SODIUM CHLORIDE 0.9% 1,000 ML IV SCH (16:20)
[2018-01-11 19:35] VITALS: BP 99/65
[2018-01-11] MEDS: PIPERACILLIN/TAZO/PMX 4.5GM 100 ML IV SCH (20:23)
[2018-01-12 01:52] VITALS: BP 104/70
[2018-01-12] MEDS: PIPERACILLIN/TAZO/PMX 4.5GM 100 ML IV SCH ×4 (02:28→21:03)
[2018-01-12] MEDS: SODIUM CHLORIDE 0.9% 1,000 ML IV SCH ×2 (02:30→12:01)
[2018-01-12 05:42] LABS: ALANINE AMINOTRANSFERASE 57 U/L (12-78); ALBUMIN 1.5 g/dL (3.4-5.0); ANION GAP 6 mmol/L (5-15); CALCIUM 7.6 mg/dL (8.5-10.1); CHLORIDE 108 mmol/L (98-107); CREATININE 0.91 mg/dL (0.7-1.3)
[2018-01-12 05:43] LABS: BASOPHILS # (AUTO) 0.01 x10^3/uL (0-0.1); BASOPHILS % (AUTO) 0 % (0-1); EOSINOPHILS # (AUTO) 0.01 x10^3/uL (0-0.4); EOSINOPHILS % (AUTO) 0 % (1-7); LYMPHOCYTES # (AUTO) 0.52 x10^3/uL (1-3.4); LYMPHOCYTES % (AUTO) 5 % (22-44); MD NO; MEAN CORPUSCULAR HGB CONC 33.6 g/dL (33.2-36.2); MEAN CORPUSCULAR VOLUME 92.4 fL (81-97); MEAN PLATELET VOLUME 7.4 fL (7.4-10.4); MONOCYTES # (AUTO) 0.82 x10^3/uL (0.2-0.8); MONOCYTES % (AUTO) 8 % (2-9); NEUTROPHILS # (AUTO) 8.61 x10^3/uL (1.8-6.8); NEUTROPHILS % (AUTO) 86 % (42-75); PLATELET COUNT 205 x10^3/uL (130-400); RED BLOOD COUNT 3.33 x10^6/uL (4.38-5.82); RED CELL DISTRIBUTION WIDTH 15.2 % (9.4-14.8)
[2018-01-12 05:44] LABS: ALKALINE PHOSPHATASE 60 U/L (45-117); BILIRUBIN,TOTAL 0.8 mg/dL (0.2-1.0)
[2018-01-12 06:57] VITALS: BP 128/80
[2018-01-12] MEDS: AMIODARONE 200 MG TABLET PO SCH (09:24)
[2018-01-12] MEDS: OMEPRAZOLE 20 MG CAPSULE.DR PO SCH (09:24)
[2018-01-12 12:13] VITALS: BP 115/76
[2018-01-12] MEDS: ONDANSETRON ODT 4 MG PO PRN (15:37)
[2018-01-12] MEDS: VANCOMYCIN 1,400 MG in SODIUM CHLORIDE 0.9% 250 ML IV SCH (16:58)
[2018-01-12] MEDS: ENOXAPARIN 40 MG/0.4 ML SQ SCH (16:58)
[2018-01-12 18:35] VITALS: BP 124/79
[2018-01-12] MEDS: ATORVASTATIN 10 MG TABLET PO SCH (21:03)
[2018-01-13 01:14] VITALS: BP 131/82
[2018-01-13] MEDS: PIPERACILLIN/TAZO/PMX 4.5GM 100 ML IV SCH ×4 (03:16→21:19)
[2018-01-13] MEDS: SODIUM CHLORIDE 0.9% 1,000 ML IV SCH ×2 (04:39→21:19)
[2018-01-13 05:17] LABS: BASOPHILS # (AUTO) 0.01 x10^3/uL (0-0.1); BASOPHILS % (AUTO) 0 % (0-1); EOSINOPHILS # (AUTO) 0.01 x10^3/uL (0-0.4); EOSINOPHILS % (AUTO) 0 % (1-7); LYMPHOCYTES # (AUTO) 0.59 x10^3/uL (1-3.4); LYMPHOCYTES % (AUTO) 9 % (22-44); MD NO; MEAN CORPUSCULAR HGB CONC 32.7 g/dL (33.2-36.2); MEAN CORPUSCULAR VOLUME 91.6 fL (81-97); MEAN PLATELET VOLUME 7.3 fL (7.4-10.4); MONOCYTES # (AUTO) 0.62 x10^3/uL (0.2-0.8); MONOCYTES % (AUTO) 9 % (2-9); NEUTROPHILS # (AUTO) 5.65 x10^3/uL (1.8-6.8); NEUTROPHILS % (AUTO) 82 % (42-75); PLATELET COUNT 235 x10^3/uL (130-400); RED BLOOD COUNT 3.24 x10^6/uL (4.38-5.82); RED CELL DISTRIBUTION WIDTH 15.2 % (9.4-14.8)
[2018-01-13 05:24] LABS: CALCIUM 7.7 mg/dL (8.5-10.1); CHLORIDE 107 mmol/L (98-107)
[2018-01-13 05:30] LABS: ALANINE AMINOTRANSFERASE 43 U/L (12-78); ALBUMIN 1.5 g/dL (3.4-5.0); ALKALINE PHOSPHATASE 56 U/L (45-117); ANION GAP 5 mmol/L (5-15); BILIRUBIN,TOTAL 0.5 mg/dL (0.2-1.0); CREATININE 0.68 mg/dL (0.7-1.3); TOTAL PROTEIN 4.8 g/dL (6.4-8.2)
[2018-01-13] MEDS: ONDANSETRON ODT 4 MG PO PRN ×2 (06:07→16:45)
[2018-01-13 07:44] VITALS: BP 134/79
[2018-01-13] MEDS ORDERED: PROMETHAZINE 25 MG/ML, 1ML IM PRN (09:00)
[2018-01-13] MEDS: OMEPRAZOLE 20 MG CAPSULE.DR PO SCH (09:13)
[2018-01-13] MEDS: AMIODARONE 200 MG TABLET PO SCH (09:13)
[2018-01-13 12:50] VITALS: BP 129/83
[2018-01-13] MEDS: VANCOMYCIN 1,400 MG in SODIUM CHLORIDE 0.9% 250 ML IV SCH (16:43)
[2018-01-13] MEDS: ENOXAPARIN 40 MG/0.4 ML SQ SCH (16:43)
[2018-01-13 19:24] VITALS: BP 133/85
[2018-01-13] MEDS: ATORVASTATIN 10 MG TABLET PO SCH (21:19)
[2018-01-14 01:17] VITALS: BP 157/92
[2018-01-14] MEDS: PIPERACILLIN/TAZO/PMX 4.5GM 100 ML IV SCH ×4 (03:42→21:07)
[2018-01-14 05:37] LABS: BASOPHILS # (AUTO) 0.02 x10^3/uL (0-0.1); BASOPHILS % (AUTO) 0 % (0-1); EOSINOPHILS # (AUTO) 0.04 x10^3/uL (0-0.4); EOSINOPHILS % (AUTO) 1 % (1-7); LYMPHOCYTES # (AUTO) 0.63 x10^3/uL (1-3.4); LYMPHOCYTES % (AUTO) 9 % (22-44); MD NO; MEAN CORPUSCULAR HEMOGLOBIN 30.3 pg (27.5-34.5); MEAN CORPUSCULAR HGB CONC 33.2 g/dL (33.2-36.2); MEAN CORPUSCULAR VOLUME 91.1 fL (81-97); MEAN PLATELET VOLUME 7.1 fL (7.4-10.4); MONOCYTES # (AUTO) 0.65 x10^3/uL (0.2-0.8); MONOCYTES % (AUTO) 9 % (2-9); NEUTROPHILS % (AUTO) 81 % (42-75); PLATELET COUNT 247 x10^3/uL (130-400); RED BLOOD COUNT 3.32 x10^6/uL (4.38-5.82); RED CELL DISTRIBUTION WIDTH 14.8 % (9.4-14.8)
[2018-01-14 05:46] LABS: CHLORIDE 108 mmol/L (98-107)
[2018-01-14 06:12] LABS: ALANINE AMINOTRANSFERASE 35 U/L (12-78); ALBUMIN 1.3 g/dL (3.4-5.0); ALKALINE PHOSPHATASE 55 U/L (45-117); ANION GAP 8 mmol/L (5-15); BILIRUBIN,TOTAL 0.6 mg/dL (0.2-1.0); CALCIUM 7.6 mg/dL (8.5-10.1); CREATININE 0.62 mg/dL (0.7-1.3); TOTAL PROTEIN 4.9 g/dL (6.4-8.2)
[2018-01-14] MEDS ORDERED: POTASSIUM CHLORIDE 20 MEQ PACKET PO ONE (08:00)
[2018-01-14 08:26] VITALS: BP 154/89
[2018-01-14] MEDS: OMEPRAZOLE 20 MG CAPSULE.DR PO SCH (09:18)
[2018-01-14] MEDS: AMIODARONE 200 MG TABLET PO SCH (09:18)
[2018-01-14] MEDS: PROMETHAZINE 25MG TABLET PO PRN (09:50)
[2018-01-14] MEDS: SODIUM CHLORIDE 0.9% 1,000 ML IV SCH (11:48)
[2018-01-14] MEDS ORDERED: SODIUM CHLORIDE 0.9% NPPB ONE (13:30)
[2018-01-14] MEDS ORDERED: SODIUM CHLORIDE 0.9% IV ONE (13:30)
[2018-01-14] MEDS ORDERED: DORNASE ALFA NPPB ONE (13:30)
[2018-01-14] MEDS ORDERED: ALTEPLASE IV ONE (13:30)
[2018-01-14 14:47] VITALS: BP 152/82
[2018-01-14] MEDS: ENOXAPARIN 40 MG/0.4 ML SQ SCH (17:39)
[2018-01-14] MEDS: ACETAMINOPHEN 325 MG TABLET PO PRN (18:43)
[2018-01-14 19:13] VITALS: BP 141/90
[2018-01-14] MEDS: ATORVASTATIN 10 MG TABLET PO SCH (21:07)
[2018-01-15 01:02] VITALS: BP 151/92
[2018-01-15] MEDS: PIPERACILLIN/TAZO/PMX 4.5GM 100 ML IV SCH ×4 (02:51→21:11)
[2018-01-15 05:23] LABS: BASOPHILS # (AUTO) 0.01 x10^3/uL (0-0.1); BASOPHILS % (AUTO) 0 % (0-1); EOSINOPHILS # (AUTO) 0.03 x10^3/uL (0-0.4); EOSINOPHILS % (AUTO) 0 % (1-7); LYMPHOCYTES # (AUTO) 0.65 x10^3/uL (1-3.4); LYMPHOCYTES % (AUTO) 6 % (22-44); MD NO; MEAN CORPUSCULAR HEMOGLOBIN 30.5 pg (27.5-34.5); MEAN CORPUSCULAR HGB CONC 32.9 g/dL (33.2-36.2); MEAN CORPUSCULAR VOLUME 92.7 fL (81-97); MEAN PLATELET VOLUME 7.3 fL (7.4-10.4); MONOCYTES # (AUTO) 1.05 x10^3/uL (0.2-0.8); MONOCYTES % (AUTO) 9 % (2-9); NEUTROPHILS % (AUTO) 85 % (42-75); PLATELET COUNT 268 x10^3/uL (130-400); RED BLOOD COUNT 3.69 x10^6/uL (4.38-5.82); RED CELL DISTRIBUTION WIDTH 14.7 % (9.4-14.8)
[2018-01-15 05:25] LABS: ANION GAP 10 mmol/L (5-15); CALCIUM 7.4 mg/dL (8.5-10.1); CHLORIDE 106 mmol/L (98-107); CREATININE 0.55 mg/dL (0.7-1.3)
[2018-01-15 05:26] LABS: ALBUMIN 1.3 g/dL (3.4-5.0)
[2018-01-15 06:55] VITALS: BP 146/93
[2018-01-15] MEDS: OMEPRAZOLE 20 MG CAPSULE.DR PO SCH (08:02)
[2018-01-15] MEDS: PROMETHAZINE 25MG TABLET PO PRN ×2 (08:02→21:21)
[2018-01-15] MEDS: AMIODARONE 200 MG TABLET PO SCH (08:03)
[2018-01-15] MEDS ORDERED: ALTEPLASE IV ONE (09:00)
[2018-01-15] MEDS ORDERED: DORNASE ALFA NPPB ONE (09:00)
[2018-01-15] MEDS ORDERED: SODIUM CHLORIDE 0.9% IV ONE (09:00)
[2018-01-15] MEDS ORDERED: SODIUM CHLORIDE 0.9% NPPB ONE (09:00)
[2018-01-15 14:35] VITALS: BP 128/80
[2018-01-15] MEDS: ACETAMINOPHEN 325 MG TABLET PO PRN (15:52)
[2018-01-15] MEDS: ENOXAPARIN 40 MG/0.4 ML SQ SCH (17:47)
[2018-01-15 19:33] VITALS: BP 112/74
[2018-01-15] MEDS: ATORVASTATIN 10 MG TABLET PO SCH (21:10)
[2018-01-16 01:10] VITALS: BP 145/89
[2018-01-16] MEDS: PIPERACILLIN/TAZO/PMX 4.5GM 100 ML IV SCH ×4 (03:10→21:23)
[2018-01-16 04:41] LABS: BASOPHILS # (AUTO) 0.01 x10^3/uL (0-0.1); BASOPHILS % (AUTO) 0 % (0-1); EOSINOPHILS # (AUTO) 0.17 x10^3/uL (0-0.4); EOSINOPHILS % (AUTO) 2 % (1-7); LYMPHOCYTES # (AUTO) 0.99 x10^3/uL (1-3.4); LYMPHOCYTES % (AUTO) 9 % (22-44); MD NO; MEAN CORPUSCULAR HEMOGLOBIN 30.3 pg (27.5-34.5); MEAN PLATELET VOLUME 6.9 fL (7.4-10.4); MONOCYTES # (AUTO) 0.87 x10^3/uL (0.2-0.8); MONOCYTES % (AUTO) 8 % (2-9); NEUTROPHILS # (AUTO) 8.59 x10^3/uL (1.8-6.8); NEUTROPHILS % (AUTO) 81 % (42-75); PLATELET COUNT 261 x10^3/uL (130-400); RED BLOOD COUNT 3.56 x10^6/uL (4.38-5.82); RED CELL DISTRIBUTION WIDTH 15.2 % (9.4-14.8)
[2018-01-16 04:47] LABS: ALBUMIN 1.2 g/dL (3.4-5.0); ANION GAP 7 mmol/L (5-15); CALCIUM 7.5 mg/dL (8.5-10.1); CHLORIDE 107 mmol/L (98-107); CREATININE 0.48 mg/dL (0.7-1.3)
[2018-01-16 04:51] LABS: PREALBUMIN 7.1 mg/dL (20.0-40.0)
[2018-01-16 07:33] VITALS: BP 160/104
[2018-01-16] MEDS: PROMETHAZINE 25MG TABLET PO PRN (07:43)
[2018-01-16] MEDS: OMEPRAZOLE 20 MG CAPSULE.DR PO SCH (08:47)
[2018-01-16] MEDS: AMIODARONE 200 MG TABLET PO SCH (08:47)
[2018-01-16] MEDS: ACETAMINOPHEN 325 MG TABLET PO PRN (10:24)
[2018-01-16] MEDS ORDERED: DORNASE ALFA NPPB ONE (11:00)
[2018-01-16] MEDS ORDERED: SODIUM CHLORIDE 0.9% NPPB ONE (11:00)
[2018-01-16] MEDS ORDERED: ALTEPLASE IV ONE (11:00)
[2018-01-16] MEDS ORDERED: SODIUM CHLORIDE 0.9% IV ONE (11:00)
[2018-01-16 14:20] VITALS: BP 115/79
[2018-01-16] MEDS: ENOXAPARIN 40 MG/0.4 ML SQ SCH (18:01)
[2018-01-16 19:20] VITALS: BP 118/82
[2018-01-16] MEDS: ATORVASTATIN 10 MG TABLET PO SCH (21:23)
[2018-01-17 01:53] VITALS: BP 146/94
[2018-01-17] MEDS: PIPERACILLIN/TAZO/PMX 4.5GM 100 ML IV SCH ×4 (03:17→21:11)
[2018-01-17] MEDS: PROMETHAZINE 25MG TABLET PO PRN (06:24)
[2018-01-17 07:27] LABS: BASOPHILS # (AUTO) 0.02 x10^3/uL (0-0.1); BASOPHILS % (AUTO) 0 % (0-1); EOSINOPHILS # (AUTO) 0.18 x10^3/uL (0-0.4); EOSINOPHILS % (AUTO) 2 % (1-7); LYMPHOCYTES # (AUTO) 0.82 x10^3/uL (1-3.4); LYMPHOCYTES % (AUTO) 10 % (22-44); MD NO; MEAN CORPUSCULAR HEMOGLOBIN 29.8 pg (27.5-34.5); MEAN CORPUSCULAR HGB CONC 32.9 g/dL (33.2-36.2); MEAN CORPUSCULAR VOLUME 90.7 fL (81-97); MEAN PLATELET VOLUME 6.8 fL (7.4-10.4); MONOCYTES # (AUTO) 0.57 x10^3/uL (0.2-0.8); MONOCYTES % (AUTO) 7 % (2-9); NEUTROPHILS # (AUTO) 6.91 x10^3/uL (1.8-6.8); NEUTROPHILS % (AUTO) 81 % (42-75); PLATELET COUNT 316 x10^3/uL (130-400); RED BLOOD COUNT 3.73 x10^6/uL (4.38-5.82)
[2018-01-17 07:28] LABS: ANION GAP 5 mmol/L (5-15); CHLORIDE 103 mmol/L (98-107); CREATININE 0.53 mg/dL (0.7-1.3)
[2018-01-17 08:31] VITALS: BP 134/92
[2018-01-17] MEDS: OMEPRAZOLE 20 MG CAPSULE.DR PO SCH (08:46)
[2018-01-17] MEDS: AMIODARONE 200 MG TABLET PO SCH (08:46)
[2018-01-17 15:13] VITALS: BP 124/76
[2018-01-17] MEDS: ENOXAPARIN 40 MG/0.4 ML SQ SCH (16:21)
[2018-01-17] MEDS: ONDANSETRON ODT 4 MG PO PRN (16:21)
[2018-01-17 20:05] VITALS: BP 127/87
[2018-01-17] MEDS: ATORVASTATIN 10 MG TABLET PO SCH (20:16)
[2018-01-17] MEDS: DOCUSATE 100 MG CAPSULE PO SCH (20:16)
[2018-01-18 02:05] VITALS: BP 136/86
[2018-01-18] MEDS: PIPERACILLIN/TAZO/PMX 4.5GM 100 ML IV SCH ×4 (03:07→23:43)
[2018-01-18] MEDS: PROMETHAZINE 25MG TABLET PO PRN ×2 (05:57→12:16)
[2018-01-18 06:03] LABS: BASOPHILS # (AUTO) 0.03 x10^3/uL (0-0.1); BASOPHILS % (AUTO) 0 % (0-1); EOSINOPHILS # (AUTO) 0.15 x10^3/uL (0-0.4); EOSINOPHILS % (AUTO) 2 % (1-7); LYMPHOCYTES # (AUTO) 0.94 x10^3/uL (1-3.4); LYMPHOCYTES % (AUTO) 12 % (22-44); MD NO; MEAN CORPUSCULAR HEMOGLOBIN 30.3 pg (27.5-34.5); MEAN CORPUSCULAR HGB CONC 33.2 g/dL (33.2-36.2); MEAN CORPUSCULAR VOLUME 91.1 fL (81-97); MEAN PLATELET VOLUME 6.9 fL (7.4-10.4); MONOCYTES % (AUTO) 9 % (2-9); NEUTROPHILS # (AUTO) 6.29 x10^3/uL (1.8-6.8); NEUTROPHILS % (AUTO) 78 % (42-75); PLATELET COUNT 343 x10^3/uL (130-400); RED BLOOD COUNT 3.55 x10^6/uL (4.38-5.82); RED CELL DISTRIBUTION WIDTH 14.9 % (9.4-14.8)
[2018-01-18 06:07] LABS: ANION GAP 3 mmol/L (5-15); CALCIUM 7.5 mg/dL (8.5-10.1); CHLORIDE 103 mmol/L (98-107); CREATININE 0.59 mg/dL (0.7-1.3)
[2018-01-18 06:35] VITALS: BP 151/89
[2018-01-18] MEDS: DOCUSATE 100 MG CAPSULE PO SCH ×2 (09:04→20:28)
[2018-01-18] MEDS: AMIODARONE 200 MG TABLET PO SCH (09:04)
[2018-01-18] MEDS: OMEPRAZOLE 20 MG CAPSULE.DR PO SCH (09:04)
[2018-01-18] MEDS: ACETAMINOPHEN 325 MG TABLET PO PRN (12:16)
[2018-01-18 13:22] VITALS: BP 130/86
[2018-01-18] MEDS: ENOXAPARIN 40 MG/0.4 ML SQ SCH (16:33)
[2018-01-18] MEDS: ONDANSETRON ODT 4 MG PO PRN (16:42)
[2018-01-18 20:17] VITALS: BP 134/91
[2018-01-18] MEDS: ATORVASTATIN 10 MG TABLET PO SCH (20:28)
[2018-01-19 01:48] VITALS: BP 146/92
[2018-01-19] MEDS: PIPERACILLIN/TAZO/PMX 4.5GM 100 ML IV SCH ×2 (05:51→11:13)
[2018-01-19 07:10] VITALS: BP 155/93
[2018-01-19 08:26] VITALS: BP 143/92
[2018-01-19] MEDS: AMIODARONE 200 MG TABLET PO SCH (08:27)
[2018-01-19] MEDS: OMEPRAZOLE 20 MG CAPSULE.DR PO SCH (08:27)
[2018-01-19] MEDS: DOCUSATE 100 MG CAPSULE PO SCH (08:27)
[2018-01-19] MEDS: ONDANSETRON ODT 4 MG PO PRN (08:30)
[2018-01-19] MEDS ORDERED: BISACODYL 10 MG SUPP PR ONE (09:00)
[2018-01-19] MEDS ORDERED: AMOX1TAB64 PO (10:43)
[2018-01-19] MEDS ORDERED: APIX5TAB PO ×2 (10:43→10:50)
[2018-01-19] MEDS ORDERED: ONDA4TAB7 PO (10:43)
[2018-01-19] MEDS ORDERED: APIXABAN 5 MG TABLET PO SCH (11:00)
== END 2018-01-19 12:43 | disposition home health service (06) | DRG 177 ==
LOC: ED 10:48 → EDIP 13:37 → 4EST 14:37 → DCLOUNGE 01-19 12:30
PROVIDERS: ADMIT Internal Medicine; ATTEND Internal Medicine
PROC: 0W9B30Z Drainage of Left Pleural Cavity with Drainage Device, Percutaneous Approach (ICD-10-PCS; principal; 2018-01-11)
PROC: BB13ZZZ Fluoroscopy of Left Lung (ICD-10-PCS; 2018-01-11)
PROC: 5A09357 Assistance with Respiratory Ventilation, Less than 24 Consecutive Hours, Continuous Positive Airway Pressure (ICD-10-PCS; 2018-01-11)
PROC: 5A09357 Assistance with Respiratory Ventilation, Less than 24 Consecutive Hours, Continuous Positive Airway Pressure (ICD-10-PCS; 2018-01-13)
PROC: 3E0L3GC Introduction of Other Therapeutic Substance into Pleural Cavity, Percutaneous Approach (ICD-10-PCS; 2018-01-14)
PROC: 5A09357 Assistance with Respiratory Ventilation, Less than 24 Consecutive Hours, Continuous Positive Airway Pressure (ICD-10-PCS; 2018-01-14)
PROC: 3E0L3GC Introduction of Other Therapeutic Substance into Pleural Cavity, Percutaneous Approach (ICD-10-PCS; 2018-01-15)
PROC: 5A09357 Assistance with Respiratory Ventilation, Less than 24 Consecutive Hours, Continuous Positive Airway Pressure (ICD-10-PCS; 2018-01-15)
PROC: 3E0L3GC Introduction of Other Therapeutic Substance into Pleural Cavity, Percutaneous Approach (ICD-10-PCS; 2018-01-16)
PROC: 5A09357 Assistance with Respiratory Ventilation, Less than 24 Consecutive Hours, Continuous Positive Airway Pressure (ICD-10-PCS; 2018-01-18)
PROC: 5A09357 Assistance with Respiratory Ventilation, Less than 24 Consecutive Hours, Continuous Positive Airway Pressure (ICD-10-PCS; 2018-01-19)
DX: J86.9 Pyothorax without fistula (principal); E43 Unspecified severe protein-calorie malnutrition; E87.2 Acidosis; I50.32 Chronic diastolic (congestive) heart failure; B96.1 Klebsiella pneumoniae [K. pneumoniae] as the cause of diseases classified elsewhere; E78.5 Hyperlipidemia, unspecified; E86.0 Dehydration; G47.33 Obstructive sleep apnea (adult) (pediatric); I11.0 Hypertensive heart disease with heart failure; I25.10 Atherosclerotic heart disease of native coronary artery without angina pectoris; I25.2 Old myocardial infarction; K59.00 Constipation, unspecified; K80.20 Calculus of gallbladder without cholecystitis without obstruction; N21.0 Calculus in bladder; N40.0 Benign prostatic hyperplasia without lower urinary tract symptoms; R13.10 Dysphagia, unspecified; R62.7 Adult failure to thrive; Z79.01 Long term (current) use of anticoagulants; Z82.49 Family history of ischemic heart disease and other diseases of the circulatory system; Z86.711 Personal history of pulmonary embolism; Z87.891 Personal history of nicotine dependence; Z90.3 Acquired absence of stomach [part of]; R91.1 Solitary pulmonary nodule; Z68.24 Body mass index [BMI] 24.0-24.9, adult
CPT/HCPCS: 32551; 32557; 36415; 71250; 71260; 74177; 74220; 80048; 80053; 81003; 82040; 82945; 83605; 83615; 83690; 83735; 83880; 84100; 84134; 84157; 85025; 85610; 85730; 87015; 87040; 87070; 87075; 87077; 87102; 87116; 87186; 87205; 87206; 89051; 93005; 94660; 96361; 96374; 96375; 99156; 99157; 99285; G0378; J1650; J2250; J2405; J2543; J2550; J2997; J3010; J3370; J3490; J7639; Q0162; Q0169; Q9967; C1729; C1769; J2310; J7030; J7050

== ENCOUNTER 2018-01-20 14:43 | Emergency (ER) | payer OTHER ==
[~2018-01-20 14:43] MED LIST changes: +AMOX1TAB64 PO; +ATOR40TA78 PO; +OMEP20TA62 PO; +ONDA4TAB7 PO
[2018-01-20 15:54] LABS: CULTURE INDICATED? NO; MICROSCOPIC INDICATED
[2018-01-20 16:03] LABS: ALANINE AMINOTRANSFERASE 39 U/L (12-78); ALBUMIN 1.8 g/dL (3.4-5.0); ANION GAP 6 mmol/L (5-15); CALCIUM 8.1 mg/dL (8.5-10.1); CHLORIDE 101 mmol/L (98-107); CREATININE 0.69 mg/dL (0.7-1.3)
[2018-01-20 16:05] LABS: ALKALINE PHOSPHATASE 93 U/L (45-117); BILIRUBIN,TOTAL 0.3 mg/dL (0.2-1.0); TOTAL PROTEIN 6.3 g/dL (6.4-8.2)
[2018-01-20 16:25] LABS: BASOPHILS # (AUTO) 0.04 x10^3/uL (0-0.1); BASOPHILS % (AUTO) 0 % (0-1); EOSINOPHILS # (AUTO) 0.08 x10^3/uL (0-0.4); EOSINOPHILS % (AUTO) 1 % (1-7); LYMPHOCYTES # (AUTO) 1.18 x10^3/uL (1-3.4); LYMPHOCYTES % (AUTO) 12 % (22-44); MD SCAN; MEAN CORPUSCULAR HEMOGLOBIN 30.2 pg (27.5-34.5); MEAN CORPUSCULAR VOLUME 91.5 fL (81-97); MEAN PLATELET VOLUME 6.5 fL (7.4-10.4); MONOCYTES # (AUTO) 0.71 x10^3/uL (0.2-0.8); MONOCYTES % (AUTO) 7 % (2-9); NEUTROPHILS # (AUTO) 7.99 x10^3/uL (1.8-6.8); NEUTROPHILS % (AUTO) 80 % (42-75); PLATELET COUNT 484 x10^3/uL (130-400); RED BLOOD COUNT 3.83 x10^6/uL (4.38-5.82); RED CELL DISTRIBUTION WIDTH 15.2 % (9.4-14.8)
[2018-01-20 18:22] VITALS: BP 143/86
== END 2018-01-20 18:23 | disposition home or self-care (01) ==
LOC: ED 16:40
DX: N40.1 Benign prostatic hyperplasia with lower urinary tract symptoms (principal); R33.8 Other retention of urine; R60.0 Localized edema; I10 Essential (primary) hypertension; E78.5 Hyperlipidemia, unspecified; I25.2 Old myocardial infarction
CPT/HCPCS: 36415; 51702; 80053; 81001; 85025; 99284